=== PATIENT | female | born 1980 ===

== ENCOUNTER 2017-05-06 21:24 | Emergency (ER) | payer OTHER, MEDICAID ==
[2017-05-07] MEDS ORDERED: MOTRIN PO ONE (01:22)
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
[2017-05-07 03:43] VITALS: BP 130/64
== END 2017-05-07 03:42 | disposition home or self-care (01) ==
LOC: ED 21:24
DX: S39.012A Strain of muscle, fascia and tendon of lower back, initial encounter (principal); S13.4XXA Sprain of ligaments of cervical spine, initial encounter; R51 Headache; Z88.2 Allergy status to sulfonamides; Z88.8 Allergy status to other drugs, medicaments and biological substances; V43.52XA Car driver injured in collision with other type car in traffic accident, initial encounter; Y93.89 Activity, other specified; Y92.89 Other specified places as the place of occurrence of the external cause; Y99.8 Other external cause status
CPT/HCPCS: 99282

== ENCOUNTER 2019-03-22 20:11 | Emergency (ER) | payer MEDICAID, OTHER ==
[2019-03-22] MEDS ORDERED: ASPIRIN 325 MG TAB PO ONE (20:36)
[2019-03-22 21:07] LABS: Basophils % (Auto) 0.6 % (0.0-1.8); Eosinophils # (Auto) 0.1 K/mm3 (0.0-0.4); Hematocrit 34.4 % (30.3-42.9); Hemoglobin 11.2 gm/dl (10.1-14.3); Lymphocytes # (Auto) 2.4 K/mm3 (1.2-5.4); Lymphocytes % (Auto) 37.8 % (13.4-35.0); Mean Corpuscular HGB Conc 33 % (30-34); Mean Corpuscular Volume 86 fl (79-97); Monocytes # (Auto) 0.5 K/mm3 (0.0-0.8); Monocytes % (Auto) 7.3 % (0.0-7.3); Platelet Count 307 K/mm3 (140-440); Red Blood Count 3.99 M/mm3 (3.65-5.03); Red Cell Distribution Width 16.5 % (13.2-15.2)
--- NOTE | 2019-03-22 21:10 | XRay Report ---
CHEST 2 VIEWS INDICATION / CLINICAL INFORMATION: MAIN: Chest Pain SINCE SATURDAY. COMPARISON: None available. FINDINGS: SUPPORT DEVICES: None. HEART / MEDIASTINUM: No significant abnormality. LUNGS / PLEURA: No significant pulmonary or pleural abnormality. No pneumothorax. ADDITIONAL FINDINGS: No significant additional findings. IMPRESSION: 1. No acute findings. Signer Name: Curtis Hawkins MD Signed: 03/22/2019 9:06 PM Workstation Name: [id number]
[2019-03-22 21:35] LABS: BUN/Creatinine Ratio 17; Blood Urea Nitrogen 15 mg/dL (7-17); Calcium 9.1 mg/dL (8.4-10.2); Hemolysis Index 28
--- NOTE | 2019-03-22 22:45 | Emergency Department Report ---
ED Chest Pain HPI - General Chief Complaint: Chest Pain Stated Complaint: CP/REYNA/TIGHT JAW/ARM/NECK PAIN Time Seen by Provider: 03/22/19 22:38 Source: patient Mode of arrival: Ambulatory Limitations: No Limitations - History of Present Illness Initial Comments: Patient is 38 years old female with no significant past medical history except for remote history of migraine. Patient presented to the ER complaining of chest pain, substernal with no radiation. Patient is also complaining of headache for the last 3 days. Patient denied any weakness, numbness or tingling sensation. No bowel or bladder incontinence. MD Complaint: chest pain -: days(s) (3) Onset: during rest Pain Location: substernal Pain Radiation: none Quality: aching Consistency: intermittent Worsens With: nothing Treatments Prior to Arrival: none - Related Data Previous Rx's Medication Instructions Recorded Last Taken Type Cyclobenzaprine [Flexeril] 10 mg PO QHS PRN #7 tablet 05/07/17 Unknown Rx Ibuprofen [Motrin] 600 mg PO Q8H PRN #30 tablet 05/07/17 Unknown Rx Allergies Allergy/AdvReac Type Severity Reaction Status Date / Time sulfamethoxazole Allergy Shortness Verified 05/06/17 22:17 [From Bactrim] of Breath trimethoprim [From Bactrim] Allergy Shortness Verified 05/06/17 22:17 of Breath Heart Score - HEART Score History: Slightly suspicious EKG: Normal Age: < 45 Risk factors: No known risk factors Troponin: < normal limit HEART Score: 0 - Critical Actions Critical Actions: 0-3 pts:0.9-1.7%risk of adverse cardiac event.Candidate for discharge ED Review of Systems ROS: Stated complaint: CP/REYNA/TIGHT JAW/ARM/NECK PAIN Other details as noted in HPI Comment: All other systems reviewed and negative Constitutional: denies: chills, fever Respiratory: denies: cough, shortness of breath, SOB with exertion, SOB at rest, wheezing Cardiovascular: chest pain. denies: palpitations, dyspnea on exertion Gastrointestinal: denies: abdominal pain, nausea, vomiting, diarrhea, constipation, hematemesis, melena, hematochezia Musculoskeletal: denies: back pain Neurological: headache. denies: weakness, numbness, paresthesias, confusion, abnormal gait ED Past Medical Hx - Past Medical History Previous Medical History?: Yes Hx Asthma: Yes - Surgical History Past Surgical History?: No - Social History Smoking Status: Never Smoker Substance Use Type: None - Medications Home Medications: Home Medications Medication Instructions Recorded Confirmed Last Taken Type Cyclobenzaprine [Flexeril] 10 mg PO QHS PRN #7 tablet 05/07/17 Unknown Rx Ibuprofen [Motrin] 600 mg PO Q8H PRN #30 tablet 05/07/17 Unknown Rx ED Physical Exam - General Limitations: No Limitations General appearance: alert, in no apparent distress - Head Head exam: Present: atraumatic, normocephalic, normal inspection - Eye Eye exam: Present: normal appearance - ENT ENT exam: Present: normal exam, normal orophraynx, mucous membranes moist - Neck Neck exam: Present: normal inspection, full ROM. Absent: tenderness, meningismus, lymphadenopathy, thyromegaly - Respiratory Respiratory exam: Present: normal lung sounds bilaterally - Cardiovascular Cardiovascular Exam: Present: regular rate, normal rhythm, normal heart sounds - GI/Abdominal GI/Abdominal exam: Present: soft, normal bowel sounds. Absent: distended, t enderness, guarding, rebound, rigid, organomegaly, mass, bruit, pulsatile mass - Extremities Exam Extremities exam: Present: normal inspection, full ROM, normal capillary refill. Absent: pedal edema, calf tenderness - Back Exam Back exam: Present: normal inspection, full ROM. Absent: CVA tenderness (R), CVA tenderness (L), muscle spasm, paraspinal tenderness, vertebral tenderness - Neurological Exam Neurological exam: Present: alert, oriented X3, CN II-XII intact, normal gait, reflexes normal - Psychiatric Psychiatric exam: Present: normal mood - Skin Skin exam: Present: warm, intact, normal color ED Course Vital Signs 03/22/19 03/22/19 03/23/19 20:22 22:45 00:16 Temperature 98.5 F Pulse Rate 83 71 68 Respiratory 18 15 17 Rate Blood Pressure 130/83 132/110 119/68 O2 Sat by Pulse 97 100 100 Oximetry ED Medical Decision Making - Lab Data Result diagrams: 03/22/19 20:41 03/22/19 20:41 - EKG Data -: EKG Interpreted by Nd EKG shows normal: sinus rhythm Rate: normal - EKG Data Interpretation: no acute changes - Radiology Data Radiology results: report reviewed - Medical Decision Making Patient is 38 years old female with no significant past medical history except for remote history of migraine. Patient presented to the ER complaining of chest pain, substernal with no radiation. Patient is also complaining of headache for the last 3 days. Patient denied any weakness, numbness or tingling sensation. No bowel or bladder incontinence. EKG showed no ST elevation. Chest x-ray is unremarkable. Labs reviewed and is unremarkable including [address] brain is negative for acute finding. Patient stated that chest pain completely resolved. I notice a fluctuation in patient blood pressure. I advised patient to keep a blood pressure log and to follow-up with her primary care physician in the next 2-3 days. Patient also advised to return to the ER if her symptoms are not improved. Critical care attestation.: If time is entered above; I have spent that time in minutes in the direct care of this critically ill patient, excluding procedure time. ED Disposition Clinical Impression: Chest pain, Headache Disposition: DC-01 TO HOME OR SELFCARE Is pt being admited?: No Condition: Stable Instructions: Chest Pain (ED), Hypertension (ED), Acute Headache (ED) Referrals: PRIMARY CARE, [Referring] - 3-5 Days
--- NOTE | 2019-03-22 23:36 | Cat Scan Report ---
Head CT without intravenous contrast INDICATION: Headache COMPARISON: None FINDINGS: The ventricles are normal in size and position. No hemorrhage or extra-axial fluid collecti on. No edema or mass effect. No focal infarct seen. Portions of the sinuses visualized are clear. No skull fracture identified. IMPRESSION: Negative head CT Automated exposure control was utilized to diminish radiation dose Signer Name: Miguel Oliva MD Signed: 03/22/2019 11:32 PM Workstation Name: [id number]
[2019-03-23 00:26] VITALS: BP 119/68
== END 2019-03-23 02:17 | disposition home or self-care (01) ==
LOC: ED 20:11
DX: R51 Headache (principal); R07.89 Other chest pain; J45.909 Unspecified asthma, uncomplicated; Z88.2 Allergy status to sulfonamides
CPT/HCPCS: 36415; 70450; 71046; 80048; 84484; 85025; 93005; 93010